=== PATIENT | male | born 1955 | race Caucasian/White ===

== ENCOUNTER 2021-01-07 13:36 | Emergency (ER) | payer SELFPAY ==
[~2021-01-07] VITALS: Ht 160 cm; Wt 73.0 kg
[2021-01-07] MEDS ORDERED: ASPIRIN 81 MG CHEW (CHILDREN'S ASA) PO ONE (14:00)
[2021-01-07 14:02] LABS: BASOPHILS # (AUTO) 0.1 10^3/uL (0.0-0.1); BASOPHILS % (AUTO) 0 % (0-10); EOSINOPHILS % (AUTO) 0 % (0-10); HEMATOCRIT 45 % (40-54); HEMOGLOBIN 14.9 g/dL (13.3-17.7); LYMPHOCYTES # (AUTO) 1.4 10^3/uL (1.0-4.0); LYMPHOCYTES % (AUTO) 10 % (12-44); MEAN CORPUSCULAR HEMOGLOBIN 30 pg (25-34); MEAN CORPUSCULAR HGB CONC 33 g/dL (32-36); MEAN CORPUSCULAR VOLUME 92 fL (80-99); MEAN PLATELET VOLUME 10.3 fL (9.0-12.2); MONOCYTES # (AUTO) 1.7 10^3/uL (0.0-1.0); MONOCYTES % (AUTO) 11 % (0-12); NEUTROPHILS # (AUTO) 11.4 10^3/uL (1.8-7.8); NEUTROPHILS % (AUTO) 78 % (42-75); PLATELET COUNT 270 10^3/uL (130-400); WHITE BLOOD COUNT 14.7 10^3/uL (4.3-11.0)
--- NOTE | 2021-01-07 14:09 | Diagnostic Imaging Report ---
INDICATION: Shortness of breath. TIME OF EXAM: 1:54 PM No prior studies are available for comparison. Lungs are hyperinflated suggestive of COPD. No infiltrates are seen. No effusion or pneumothorax. Heart size normal. IMPRESSION: Findings suggestive of COPD. No infiltrates are detected. Dictated by: Dictated on workstation # [id number]
[2021-01-07] MEDS ORDERED: NS IV 1000 ML 1,000 ML IV SCH (14:15)
[2021-01-07 14:16] LABS: INR 1.1 (0.8-1.4); PROTHROMBIN TIME PATIENT 14.2 SEC (12.2-14.7)
[2021-01-07 14:17] LABS: ALBUMIN 4.2 GM/DL (3.2-4.5); CHLORIDE 100 MMOL/L (98-107); POTASSIUM 4.4 MMOL/L (3.6-5.0); SODIUM 139 MMOL/L (135-145)
[2021-01-07 14:18] LABS: CALCIUM 9.8 MG/DL (8.5-10.1)
[2021-01-07 14:19] LABS: GLUCOSE 103 MG/DL (70-105)
[2021-01-07 14:20] LABS: CARBON DIOXIDE 23 MMOL/L (21-32)
[2021-01-07 14:21] LABS: BILIRUBIN,TOTAL 0.4 MG/DL (0.1-1.0)
[2021-01-07 14:23] LABS: ALKALINE PHOSPHATASE 70 U/L (40-136); CREATININE SERUM 1.22 MG/DL (0.60-1.30); GFR ESTIMATED 60; MAGNESIUM 1.9 MG/DL (1.6-2.4)
[2021-01-07 14:24] LABS: BUN/CREATININE RATIO 19
[2021-01-07 14:26] LABS: ALANINE AMINOTRANSFERASE 9 U/L (0-55)
--- NOTE | 2021-01-07 14:28 | ED Cough/URI ---
General Chief Complaint: Respiratory Problems Stated Complaint: SOA/COUGH/HX COPD Nursing Triage Note: PT CO OF SOA, PT STARTED ON FRIDAY, HAS WORN HIS FRIENDS O2 A LITTLE AT HER HOUSE. PT HAS OCC COUGH History of Present Illness Date Seen by Provider: Jan 07, 2021 Time Seen by Provider: 13:40 Initial Comments 65-year-old male reports cough and congestion since 01/05/2021. He reports history of COPD, he has not received the COVID vaccines. He denies a local primary care provider, he moved here from [place] approximately 3 months ago. He was hospitalized in [place] during September 2020 for suicidal ideations. He reports being on multiple medications but he is unsure of the mall. He does have been inhaler but he has not used it today. Timing/Duration: getting worse Severity/Quality: moderate Prior Episodes/Possible Cause: occasional episodes Modifying Factors: Improves With Rest Associated Symptoms: cough, shortness of breath Allergies and Home Medications Allergies Coded Allergies: No Known Drug Allergies (Unverified , 01/07/21) Patient Home Medication List Home Medication List Reviewed: Yes Prednisone (Prednisone) 20 Mg Tab, 40 MG PO DAILY Prescribed by: DAVE POWERS on 01/07/21 1619 Review of Systems Review of Systems Constitutional: no symptoms reported, see HPI EENTM: see HPI, no symptoms reported Respiratory: see HPI, cough, dyspnea on exertion; No phlegm; short of breath; No wheezing Cardiovascular: no symptoms reported, see HPI; No chest pain Gastrointestinal: no symptoms reported, see HPI Genitourinary: no symptoms reported, see HPI All Other Systems Reviewed Negative Unless Noted: Yes Past Iqibiye-Twqxii-Qxcurd Hx Patient Social History Tobacco Use?: Yes Tobacco type used: Cigarettes Smoking Status: Current Everyday Smoker Substance use?: Yes Substance type: Marijuana Alcohol Use?: No Pt feels they are or have been: No Family Medical History Reviewed Nursing Family Hx Physical Exam Vital Signs - First Documented 01/07/21 13:38 Temp 36.3 Pulse 131 Resp 36 B/P (MAP) 143/93 (110) Pulse Ox 91 O2 Delivery Nasal Cannula O2 Flow Rate 2.00 Capillary Refill : Less Than 3 Seconds Height: '" Weight: lbs. oz. kg; 28.00 BMI Method: General Appearance: WD/WN, mild distress HEENT: PERRL/EOMI, normal ENT inspection, TMs normal, pharynx normal Neck: non-tender, full range of motion, supple, normal inspection Respiratory: chest non-tender, lungs clear, normal breath sounds Cardiovascular: normal peripheral pulses, regular rate, rhythm, tachycardia Gastrointestinal: normal bowel sounds, non tender, soft Neurologic/Psychiatric: no motor/sensory deficits, alert, normal mood/affect, oriented x 3 Skin: normal color, warm/dry Focused Exam Time of Focused Exam: 15:30 Respiratory: Chest Non Tender, Lungs Clear, Normal Breath Sounds Cardiovascular: Regular Rate, Rhythm, No Edema Capillary Refill: Less Than 3 Seconds Skin: normal color, warm/dry; No rash, No ulcerations Within 3hrs of presentation: Admin fluids, D/C Instructions given to patient, Focus exam, Lactate level Progress/Results/Core Measures Suspected Sepsis SIRS Temperature: Pulse: 131 Respiratory Rate: 36 Laboratory Tests 01/07/21 13:50: White Blood Count 14.7H Blood Pressure 143 /93 Mean: 110 Laboratory Tests 01/07/21 13:50: Creatinine 1.22, INR Comment 1.1, Platelet Count 270, Total Bilirubin 0.4 Results/Orders Lab Results Laboratory Tests Test 01/07/21 13:50 01/07/21 13:55 01/07/21 14:47 Range/Units White Blood Count 14.7 H 4.3-11.0 10^3/uL Red Blood Count 4.92 4.30-5.52 10^6/uL Hemoglobin 14.9 13.3-17.7 g/dL Hematocrit 45 40-54 % Mean Corpuscular Volume 92 80-99 fL Mean Corpuscular Hemoglobin 30 25-34 pg Mean Corpuscular Hemoglobin Concent 33 32-36 g/dL Red Cell Distribution Width 13.3 10.0-14.5 % Platelet Count 270 130-400 10^3/uL Mean Platelet Volume 10.3 9.0-12.2 fL Immature Granulocyte % (Auto) 1 % Neutrophils (%) (Auto) 78 H 42-75 % Lymphocytes (%) (Auto) 10 L 12-44 % Monocytes (%) (Auto) 11 0-12 % Eosinophils (%) (Auto) 0 0-10 % Basophils (%) (Auto) 0 0-10 % Neutrophils # (Auto) 11.4 H 1.8-7.8 10^3/uL Lymphocytes # (Auto) 1.4 1.0-4.0 10^3/uL Monocytes # (Auto) 1.7 H 0.0-1.0 10^3/uL Eosinophils # (Auto) 0.0 0.0-0.3 10^3/uL Basophils # (Auto) 0.1 0.0-0.1 10^3/uL Immature Granulocyte # (Auto) 0.1 0.0-0.1 10^3/uL Neutrophils % (Manual) 82 % Lymphocytes % (Manual) 10 % Monocytes % (Manual) 8 % Blood Morphology Comment NORMAL Prothrombin Time 14.2 12.2-14.7 SEC INR Comment 1.1 0.8-1.4 Activated Partial Thromboplast Time 39 H 24-35 SEC Sodium Level 139 135-145 MMOL/L Potassium Level 4.4 3.6-5.0 MMOL/L Chloride Level 100 98-107 MMOL/L Carbon Dioxide Level 23 21-32 MMOL/L Anion Gap 16 H 5-14 MMOL/L Blood Urea Nitrogen 23 H 7-18 MG/DL Creatinine 1.22 0.60-1.30 MG/DL Estimat Glomerular Filtration Rate 60 BUN/Creatinine Ratio 19 Glucose Level 103 70-105 MG/DL Calcium Level 9.8 8.5-10.1 MG/DL Corrected Calcium 9.6 8.5-10.1 MG/DL Magnesium Level 1.9 1.6-2.4 MG/DL Total Bilirubin 0.4 0.1-1.0 MG/DL Aspartate Amino Transf (AST/SGOT) 14 5-34 U/L Alanine Aminotransferase (ALT/SGPT) 9 0-55 U/L Alkaline Phosphatase 70 40-136 U/L Lactate Dehydrogenase 153 125-220 U/L Myoglobin 106.2 H 10.0-92.0 NG/ML Troponin I < 0.028 <0.028 NG/ML C-Reactive Protein High Sensitivity 18.68 H 0.00-0.50 MG/DL B-Type Natriuretic Peptide < 10.0 <100.0 PG/ML Total Protein 8.0 6.4-8.2 GM/DL Albumin 4.2 3.2-4.5 GM/DL Procalcitonin 0.18 H <0.10 NG/ML Influenza Type A (RT-PCR) Not Detected Not Detecte Influenza Type B (RT-PCR) Not Detected Not Detecte SARS-CoV-2 RNA (RT-PCR) Not Detected Not Detecte Urine Color YELLOW Urine Clarity CLEAR Urine pH 5.5 5-9 Urine Specific [place] >=1.030 1.016-1.022 Urine Protein 1+ H NEGATIVE Urine Glucose (UA) NEGATIVE NEGATIVE Urine Ketones 1+ H NEGATIVE Urine Nitrite NEGATIVE NEGATIVE Urine Bilirubin 1+ H NEGATIVE Urine Urobilinogen 1.0 < = 1.0 MG/DL Urine Leukocyte Esterase NEGATIVE NEGATIVE Urine RBC (Auto) 3+ H NEGATIVE Urine RBC 5-10 H /HPF Urine WBC 2-5 /HPF Urine Squamous Epithelial Cells 0-2 /HPF Urine Crystals NONE /LPF Urine Bacteria TRACE /HPF Urine Casts PRESENT /LPF Urine Hyaline Casts 0-2 H /LPF Urine Red Blood Cell Casts 0-2 H /LPF Urine Mucus SMALL H /LPF Urine Culture Indicated NO Urine Opiates Screen NEGATIVE NEGATIVE Urine Oxycodone Screen NEGATIVE NEGATIVE Urine Methadone Screen NEGATIVE NEGATIVE Urine Propoxyphene Screen NEGATIVE NEGATIVE Urine Barbiturates Screen NEGATIVE NEGATIVE Ur Tricyclic Antidepressants Screen NEGATIVE NEGATIVE Urine Phencyclidine Screen NEGATIVE NEGATIVE Urine Amphetamines Screen NEGATIVE NEGATIVE Urine Methamphetamines Screen NEGATIVE NEGATIVE Urine Benzodiazepines Screen NEGATIVE NEGATIVE Urine Cocaine Screen NEGATIVE NEGATIVE Urine Cannabinoids Screen POSITIVE H NEGATIVE My Orders Orders - DAVE POWERS [employer] Cbc With Automated Diff (01/07/21 13:54) Comprehensive Metabolic Panel (01/07/21 13:54) Hs C Reactive Protein (01/07/21 13:54) Ekg Tracing (01/07/21 13:54) O2 (01/07/21 13:54) Ed Iv/Invasive Line Start (01/07/21 13:54) Monitor-Rhythm Ecg Trace Only (01/07/21 13:54) Chest 1 View, Ap/Pa Only (01/07/21 13:54) Magnesium (01/07/21 13:55) Myoglobin Serum (01/07/21 13:55) Protime With Inr (01/07/21 13:55) Partial Thromboplastin Time (01/07/21 13:55) O2 (01/07/21 13:55) BNP (01/07/21 13:55) Troponin I (01/07/21 13:55) Aspirin Chewable Tablet (Baby Aspirin Ch (01/07/21 14:00) Procalcitonin (Pct) (01/07/21 13:56) LDH (01/07/21 13:56) Influenza A And B By Pcr (01/07/21 13:56) Covid 19 Inhouse Test (01/07/21 13:56) Drug Screen Stat (Urine) (01/07/21 13:57) Ua Culture If Indicated (01/07/21 13:57) Ed Iv/Invasive Line Start (01/07/21 14:01) Ns Iv 1000 Ml (Sodium Chloride 0.9%) (01/07/21 14:15) Manual Differential (01/07/21 13:50) Methylprednisolone Sod Succ (Solu-Medrol (01/07/21 15:05) Diltiazem Injection (Cardizem Injection) (01/07/21 15:16) Medications Given in ED Current Medications Medications Dose Ordered Sig/Inez Route Start Time Stop Time Status Last Admin Dose Admin Aspirin 324 mg ONCE ONCE PO 01/07/21 14:00 01/07/21 14:01 DC 01/07/21 14:38 324 MG Vital Signs/I&O 01/07/21 01/07/21 01/07/21 13:38 13:38 16:57 Temp 36.3 Pulse 131 95 Resp 36 24 B/P (MAP) 143/93 (110) 111/74 Pulse Ox 91 96 93 O2 Delivery Nasal Cannula Room Air Room Air O2 Flow Rate 2.00 2.00 Capillary Refill : Less Than 3 Seconds Blood Pressure Mean: 110 Progress Note : Time: 13:40 Progress Note Patient seen and evaluated, will obtain labs and administer normal saline 1 L IV. Patient has O2 per nasal cannula at 1 L maintaining SaO2 of 98% or higher. 1420 patient reports slight improvement in symptoms. Oxygen removed per nasal c annula and continues on room air with SaO2 of 95% or higher. Will give Solu- Medrol 125 mg IV. 1445 continues to be tacky 100-1 20, will give diltiazem. 1545 heart rate in the 80s to 90s. Patient reports improvement in respiratory status. Discharge instructions and return precautions reviewed with the patient. ECG Initial ECG Impression Date: Jan 07, 2021 Initial ECG Impression Time: 13:52 Initial ECG Rate: 126 Initial ECG Rhythm: S.Tach Initial ECG Intervals IN 125, QRSD 78, QT 300, QTc 435. [place] P 83, QRS 57, T 56. Initial ECG Comparisson: No Previous ECG Available Diagnostic Imaging Diagonstic Imaging: Xray Plain Films/CT/US/NM/MRI: chest Comments NAME: HARSH [facility]ARDY [facility] REC#: [id number] PT STATUS: REG ER : 1955 PHYSICIAN: DAVE POWERS ADMIT DATE: 01/07/21/ER Draft Date of Exam:01/07/21 CHEST 1 VIEW, AP/PA ONLY INDICATION: Shortness of breath. TIME OF EXAM: 1:54 PM No prior studies are available for comparison. Lungs are hyperinflated suggestive of COPD. No infiltrates are seen. No effusion or pneumothorax. Heart size normal. IMPRESSION: Findings suggestive of COPD. No infiltrates are detected. Dictated on workstation # [id number] Dict: 01/07/21 1408 Trans: 01/07/21 140 CV [id number] Interpreted by: NAVID TRAORE MD Electronically signed by: Reviewed: Reviewed by Me Departure Impression Primary Impression: COPD exacerbation Disposition: 01 HOME, SELF-CARE Condition: Improved Departure-Patient Inst. Decision time for Depature: 15:45 Referrals: [facility] [place] NO,LOCAL PHYSICIAN (PCP) Primary Care Physician Patient Instructions: Chronic Obstructive Pulmonary Disease (COPD) (DC) Add. Discharge Instructions: Take your home medications, as prescribed. Follow up at [facility], to establish with a provider. Use your inhaler, as prescribed. Return to the Emergency Dept for new, urgent healthcare problems. All discharge instructions reviewed with patient and/or family. Voiced understanding. Scripts Prednisone (Prednisone) 20 Mg Tab 40 MG PO DAILY, #10 TAB 0 Refills Prov: DAVE POWERS 01/07/21 DAVE POWERS Jan 07, 2021 14:28
[2021-01-07 14:32] LABS: LYMPHOCYTES % (MANUAL) 10 %; MONOCYTES % (MANUAL) 8 %; NEUTROPHILS % (MANUAL) 82 %; RBC MORPH NORMAL
[2021-01-07 14:52] LABS: CLARITY,URINE CLEAR; COLOR,URINE YELLOW; GLUCOSE, URINE (UA) NEGATIVE (NEGATIVE); KETONES,URINE 1+ (NEGATIVE); LEUKOCYTE ESTERASE ,URINE NEGATIVE (NEGATIVE); NITRITE,URINE NEGATIVE (NEGATIVE); PH,URINE 5.5 (5-9); PROTEIN,URINE 1+ (NEGATIVE)
[2021-01-07 15:05] LABS: BACTERIA,URINE TRACE /HPF; HYALINE CASTS, URINE 0-2 /LPF; RED BLOOD CELL CASTS,URINE 0-2 /LPF; SQUAMOUS EPITHELIAL CELL,UR 0-2 /HPF
[2021-01-07] MEDS ORDERED: methylPREDNISolone 125 MG (Solu-MEDROL) VIAL IVP STA (15:05)
[2021-01-07 15:07] LABS: AMPHETAMINE SCREEN, URINE NEGATIVE (NEGATIVE); BARBITURATE SCREEN URINE NEGATIVE (NEGATIVE); BENZODIAZEPINES SCREEN URINE NEGATIVE (NEGATIVE); CANNABINOID SCREEN, URINE POSITIVE (NEGATIVE); COCAINE SCREEN URINE NEGATIVE (NEGATIVE); METHADONE STAT NEGATIVE (NEGATIVE); METHAMPHETAMINE SCREEN URINE S NEGATIVE (NEGATIVE); OPIATE SCREEN URINE NEGATIVE (NEGATIVE); OXYCODONE STAT NEGATIVE (NEGATIVE); PROPOXYPHENE STAT NEGATIVE (NEGATIVE); TRICYCLIC ANTIDEPRESSANTS SCRE NEGATIVE (NEGATIVE)
[2021-01-07] MEDS ORDERED: PRD20T PO (16:19)
[2021-01-07 16:57] VITALS: BP 111/74
[2021-01-08 07:14] LABS: BILIRUBIN,URINE 1+ (NEGATIVE)
== END 2021-01-07 16:57 | disposition home or self-care (01) ==
LOC: ER 13:37
DX: J44.1 Chronic obstructive pulmonary disease with (acute) exacerbation (principal); R00.0 Tachycardia, unspecified; F17.210 Nicotine dependence, cigarettes, uncomplicated; Z20.822 Contact with and (suspected) exposure to COVID-19
CPT/HCPCS: 36415; 71045; 80053; 80306; 81000; 83615; 83735; 83874; 83880; 84145; 84484; 85007; 85027; 85610; 85730; 86141; 87636; 93005; 93041